=== PATIENT | female | born 1975 | race Caucasian/White ===

== ENCOUNTER 2017-12-12 11:54 | Outpatient (CLI) | payer OTHER | END 2017-12-12 13:12 | disposition home or self-care (01) | LOC: NST 11:54 | DX: Z34.93 Encounter for supervision of normal pregnancy, unspecified, third trimester (principal) ==

== ENCOUNTER 2017-12-16 16:11 | Outpatient (CLI) | payer OTHER | END 2017-12-16 16:35 | disposition home or self-care (01) | LOC: NST 16:11 | DX: Z34.83 Encounter for supervision of other normal pregnancy, third trimester (principal) ==

== ENCOUNTER 2017-12-18 18:25 | Outpatient (CLI) | payer OTHER ==
[2017-12-18] MEDS ORDERED: PRENATABS RX T1 EACH PO (22:36)
== END 2017-12-19 07:49 | disposition still patient (30) ==
LOC: OBS/DEL 18:25
DX: O47.1 False labor at or after 37 completed weeks of gestation (principal); Z34.83 Encounter for supervision of other normal pregnancy, third trimester

== ENCOUNTER 2017-12-18 19:42 | Inpatient (IN) | payer OTHER ==
[~2017-12-18] VITALS: Ht 157.5 cm; Wt 148.0 kg
[2017-12-18] MEDS ORDERED: PRENATABS RX T1 EACH PO (22:36)
== END 2017-12-22 13:20 | disposition home or self-care (01) | DRG 766 ==
LOC: LDR 19:42 → O/R 12-19 13:33 → SURG-SUITE 12-19 15:38 → OB/GYN 12-20 14:45 → SURG-SUITE 12-22 13:20
PROVIDERS: Obstetrics & Gynecology
PROC: 10907ZC Drainage of Amniotic Fluid, Therapeutic from Products of Conception, Via Natural or Artificial Opening (ICD-10-PCS; 2017-12-19)
PROC: 3E0P7VZ Introduction of Hormone into Female Reproductive, Via Natural or Artificial Opening (ICD-10-PCS; 2017-12-19)
PROC: 4A033R1 Measurement of Arterial Saturation, Peripheral, Percutaneous Approach (ICD-10-PCS; 2017-12-19)
PROC: 4A1HXCZ Monitoring of Products of Conception, Cardiac Rate, External Approach (ICD-10-PCS; 2017-12-19)
PROC: 10D00Z1 Extraction of Products of Conception, Low, Open Approach (ICD-10-PCS; principal; 2017-12-19 13:00)
DX: O62.0 Primary inadequate contractions (principal); O99.824 Streptococcus B carrier state complicating childbirth; Z3A.39 39 weeks gestation of pregnancy; Z37.0 Single live birth